=== PATIENT | female | born 1965 | race Caucasian/White ===

== ENCOUNTER 2022-10-09 11:14 | Observation (INO) | payer OTHER ==
[2022-10-09 13:03] LABS: #Monocytes 0.5 thou/uL (0.11-0.59); #Neutrophils 7.9 thou/uL (1.40-6.50); %Basophils 0.3 % (0.0-1.0); %Lymphocytes 12.3 % (21.0-51.0); %Monocytes 5.5 % (0.0-10.0); %Neutrophils 81.4 % (42.0-75.0); Hematocrit 42.5 % (36.0-47.0); Mean Corpuscular HGB CONC 32.9 g/dL (32.0-36.0); Mean Corpuscular Hemoglobin 30.4 pg (27.0-31.0); Mean Corpuscular Volume 92.2 fl (78.0-98.0); Mean Platelet Volume 9.9 fL (7.4-10.4); Platelet Count 376 10x3/uL (130-400); RBC Distribution Width 13.5 % (11.5-14.5); Red Blood Cell (RBC) Count 4.61 mill/uL (4.20-5.40); White Blood Cell (WBC) Count 9.7 10x3/uL (4.8-10.8)
[2022-10-09 13:26] LABS: ALT (SGPT) 11 U/L (8-55); AST (SGOT) 15 U/L (5-34); Albumin 4.1 g/dL (3.5-5.0); Alkaline Phosphatase 59 U/L (40-110); Anion Gap 12 mmol/L (10-20); BUN (Urea Nitrogen) 13 mg/dL (9.8-20.1); Bilirubin, Total 0.4 mg/dL (0.2-1.2); Calc. Creatinine Clearance 0 mL/min (70-130); Calcium 9.3 mg/dL (7.8-10.44); Carbon Dioxide 25 mmol/L (22-29); Chloride 105 mmol/L (98-107); Estimated GFR 79; Globulin 3.3 g/dL (2.4-3.5); Glucose 115 mg/dL (70-105); Lipase 15 U/L (8-78); Potassium 4.5 mmol/L (3.5-5.1); Protein, Total 7.4 g/dL (6.0-8.3); Sodium 137 mmol/L (136-145)
[2022-10-09] MEDS ORDERED: Calcium Carbonate 500 MG ChewTAB PO PRN (16:20)
[2022-10-09] MEDS ORDERED: Ondansetron ODT 4 MG TAB PO PRN (16:20)
[2022-10-09] MEDS ORDERED: HYDROcodone/Acetaminophen 5/325 mg Tablet PO PRN (16:20)
[2022-10-09] MEDS ORDERED: Acetaminophen 325 MG TAB PO PRN (16:20)
[2022-10-09] MEDS ORDERED: Senokot S 8.6-50 MG TAB PO PRN (16:20)
[2022-10-09 16:44] LABS: Bacteria/HPF None Seen HPF (None Seen); Bilirubin Negative (Negative); Blood, Urine Negative (Negative); CAUTI Indications for Culture Pelvic or flank pain; Clarity Clear (Clear); Glucose, Urine (Dipstick) Normal (Negative); Ketone, Urine Trace mg/dL (Negative); Leukocyte 75 Leu/uL (Negative); Nitrite Negative (Negative); Protein, Urine (Dipstick) Negative (Neg-Trace); RBC/HPF 0-3 HPF (0-3); Specific Gravity, Urine 1.008 (1.002-1.036); Squamous Epithelial 0-3 HPF (0-3); Urobilinogen Normal mg/dL (Less than 2); WBC/HPF 0-3 HPF (0-3)
[2022-10-09 16:46] LABS: Urine Culture Reflex No No
[2022-10-09] MEDS ORDERED: VANCOMYCIN 2 GRAM/500 ML BAG 2 GM in Premix Bag 1 BAG IVPB SCH (18:00)
[2022-10-09 18:28] VITALS: BMI 44.1
[2022-10-09] MEDS: Famotidine 20 MG TAB PO SCH (20:14)
[2022-10-10 03:52] LABS: #Basophils 0.1 thou/uL (0.0-0.2); #Eosinphils 0.1 thou/uL (0.0-0.7); #Monocytes 0.9 thou/uL (0.11-0.59); #Neutrophils 4.5 thou/uL (1.40-6.50); %Basophils 0.7 % (0.0-1.0); %Eosinophils 1.6 % (0.0-10.0); %Lymphocytes 36.2 % (21.0-51.0); %Monocytes 9.7 % (0.0-10.0); %Neutrophils 51.6 % (42.0-75.0); Hematocrit 36.8 % (36.0-47.0); Hemoglobin 11.8 g/dL (12.0-16.0); Mean Corpuscular HGB CONC 32.1 g/dL (32.0-36.0); Mean Corpuscular Hemoglobin 29.6 pg (27.0-31.0); Mean Corpuscular Volume 92.5 fl (78.0-98.0); Mean Platelet Volume 9.9 fL (7.4-10.4); Platelet Count 320 10x3/uL (130-400); RBC Distribution Width 13.7 % (11.5-14.5); Red Blood Cell (RBC) Count 3.98 mill/uL (4.20-5.40); White Blood Cell (WBC) Count 8.8 10x3/uL (4.8-10.8)
[2022-10-10 04:13] LABS: Anion Gap 11 mmol/L (10-20); BUN (Urea Nitrogen) 14 mg/dL (9.8-20.1); Calc. Creatinine Clearance 130 mL/min (70-130); Calcium 8.8 mg/dL (7.8-10.44); Carbon Dioxide 24 mmol/L (22-29); Chloride 109 mmol/L (98-107); Estimated GFR 73; Glucose 102 mg/dL (70-105); Potassium 4.6 mmol/L (3.5-5.1); Sodium 139 mmol/L (136-145)
[2022-10-10] MEDS: Famotidine 20 MG TAB PO SCH (08:59)
[2022-10-10] MEDS ORDERED: Doxycycline 100 MG CAP PO SCH (09:00)
[2022-10-10 09:58] VITALS: BP 127/67; TEMP 98
== END 2022-10-10 13:50 | disposition home or self-care (01) ==
LOC: ERS 11:14 → 2NO 16:20
PROVIDERS: ADMIT Student in an Organized Health Care Education/Training Program; ATTEND Emergency Medicine
PROC: 0H97XZZ Drainage of Abdomen Skin, External Approach (ICD-10-PCS; principal; 2022-10-09)
DX: R00.1 Bradycardia, unspecified (principal); L02.211 Cutaneous abscess of abdominal wall; B95.61 Methicillin susceptible Staphylococcus aureus infection as the cause of diseases classified elsewhere; I08.1 Rheumatic disorders of both mitral and tricuspid valves; I10 Essential (primary) hypertension; R11.2 Nausea with vomiting, unspecified; Z90.49 Acquired absence of other specified parts of digestive tract; Z79.82 Long term (current) use of aspirin; Z88.2 Allergy status to sulfonamides; Z88.1 Allergy status to other antibiotic agents; Z88.6 Allergy status to analgesic agent
CPT/HCPCS: 36415; 80048; 80053; 81001; 83690; 83735; 85025; 87070; 87077; 87186; 87205; 93005; 93306; 96374; G0378; J3370